=== PATIENT | female | born 1990 | race Caucasian/White ===

== ENCOUNTER 2020-08-06 10:54 | Emergency (ER) | payer OTHER, SELFPAY ==
--- NOTE | ~2020-08-06 | US_ITS ---
EXAMINATION: US pelvic complete w TV EXAM DATE: 08/06/2020 12:29 INDICATION: Left pelvic pain. TECHNIQUE: Pelvic transabdominal and transvaginal sonogram was performed. There are multiple graysca le and Doppler images available for interpretation. Comparison is made to prior examination from 11/30. FINDINGS: Uterus measures 7.7 x 3.7 x 5.3 cm, with IUD centrally located inside the endometrial cavi ty. Endometrial stripe measures 2 mm, within normal limits. There is no free pelvic fluid. Right adnexa: The right ovary is normal in size and morphology. Left adnexa: The left ovary is normal in size and morphology. IMPRESSION: 1. Unremarkable pelvic ultrasound exam. Reviewed, dictated and finalized at location A.
--- NOTE | ~2020-08-06 | CT_ITS ---
EXAMINATION: CT abdomen pelvis w con EXAM DATE: 08/06/2020 13:25 INDICATION: Left lower abdominal pain, symptoms one month. TECHNIQUE: Spiral CT of the abdomen and pelvis was performed following intravenous injection of 100 m L Omnipaque 350. Axial, coronal and sagittal images were reviewed. The dose-length product (DLP) fo r this examination was 182.97 mGy-cm. The exposure was tailored according to patient size (auto mA e xposure control), and iterative reconstruction (ASIR) was used as additional dose reduction technique . There is no prior study for comparison. FINDINGS: The liver, spleen, adrenal glands and pancreas are unremarkable. Gallbladder is unremarkab le. No biliary obstruction. Portal and splenic veins are patent. Kidneys enhance symmetrically. T here is no hydronephrosis. There is IUD which appears to be centrally located within the endometriu m, expected position. There is a deflated appearing, recently ruptured right ovarian follicle. The b ladder is unremarkable. There is no retroperitoneal or pelvic lymphadenopathy. The appendix is normal. The stomach and small bowel are unremarkable. There is expected amount of c olonic stool. No free intraperitoneal gas. The heart is normal in size. There are no pericardial or pleural effusions. The lung bases are unremarkable. The bones are unremarkable. IMPRESSION: 1. No acute intra-abdominal findings. 2. Likely recently ruptured right ovarian physiologic follicle. Reviewed, dictated and finalized at location A.
[2020-08-06 11:01] VITALS: BP 132/78; PULSE 79; RESP 14; TEMP 36.5; O2SAT 100
[2020-08-06 11:24] LABS: Basophils Percent Auto 0.3 % (0.2-1.2); Eosinophils Absolute Auto 0.1 K/mm3 (0-0.3); Eosinophils Percent Auto 1.3 % (0-4.4); Hematocrit 42.6 % (37.0-47.0); Hemoglobin 14.2 g/dL (12.0-15.0); Immature Granulocyte Absolute 0.02 K/mm3 (0.00-0.031); Immature Granulocyte Percent A 0.3 % (0-0.5); Lymphocytes Percent Auto 27.2 % (18.3-44.2); Mean Corpuscular HGB Conc 33.3 g/dl (32-36); Mean Corpuscular Hemoglobin 31.2 pg (26-34); Mean Corpuscular Volume 93.6 fl (80-100); Mean Platelet Volume 10.2 fl (7.4-10.4); Monocytes Absolute Auto 0.6 K/mm3 (0.1-0.6); Monocytes Percent Auto 7.4 % (2.6-8.5); Neutrophils Absolute Auto 4.9 K/mm3 (1.3-6.7); Neutrophils Percent Auto 63.5 % (45.5-73.1); Platelet Count Result 232 k/mm3 (150-375); Red Blood Count 4.55 M/mm3 (4.2-5.4); Red Cell Distribution Width 12.7 % (11.5-14.5); White Blood Count 7.7 K/mm3 (4.5-10.0)
[2020-08-06 11:31] LABS: Add Urine Microscopic? YES; Appearance Urine Clear (Clear); Bacteria Urine Trace /hpf; Bilirubin Urine Negative (Negative); Blood Urine Negative (Negative); Color Urine Yellow (Yellow); Glucose Urine UA Negative (Negative); Ketones Urine Negative (Negative); Leukocyte Esterase Ur Trace LEU/UL (Negative); Mucus Urine Few /lpf; Nitrate Urine Negative (Negative); Protein Urine Negative (Negative); Squamous Epithelial Cell Urine Many /hpf (Few); Urobilinogen Urine Negative mg/dL (<2.0); WBC Urine 0-3 /hpf
--- NOTE | 2020-08-06 11:37 | ED.ABDPAIN ---
HPI - Abdominal Pain General Chief Complaint: Abdominal Pain Stated Complaint: ABD PAIN Time Seen by Provider: 08/06/20 10:55 Source: patient Mode of arrival: ambulatory Limitations: no limitations History of Present Illness HPI narrative: This is a 30-year-old female that presents the emergency department for left-sided pelvic/abdominal pain x1 month. Reports she has intermittent sharp pains in the left side of her pelvis. 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 Reports improvement in her discharge after this. Denies fever, nausea, vomiting, dysuria, or hematuria. Related Data Allergies Allergy/AdvReac Type Severity Reaction Status Date / Time amoxicillin Allergy Unknown HIVES Verified 10/14/19 14:56 ampicillin Allergy Unknown HIVES Verified 10/14/19 14:56 Review of Systems Review of Systems: Narrative: CONSTITUTIONAL: Denies fever GASTROINTESTINAL: Reports abdominal/pelvic pain. Denies nausea, vomiting, or diarrhea. GENITOURINARY: Denies dysuria or hematuria. All systems reviewed & are unremarkable except as noted in HPI and below PMFSH Social History Social History (Updated 08/06/20 @ 11:41 by Nina Bailey PA-C) Smoking status: Current every day smoker Alcohol intake: current Substance use: current Substance use type: marijuana Gender identity (if verbalized by the patient): Female Exam Narrative: Exam Narrative: GENERAL: Well-appearing, well-nourished, and in no acute distress. HEAD: Normocephalic, atraumatic. EYES: EOMI. CHEST: Clear to auscultation. No respiratory distress. No wheezes rales or rhonchi HEART: Regular rate and rhythm. No murmur heard. Normal peripheral pulses. ABDOMEN: Soft, nondistended, normal active bowel sounds. Mild tenderness to palpation of the left lower abdomen/pelvis, without guarding EXTREMITIES: Normal range of motion. No edema. SKIN: Warm, dry, no rash. NEURO: No focal deficits. Alert and oriented x3. PSYCH: Normal mood and affect PELVIC: Moderate amount of white cervical discharge. Mild redness of the cervical os. No CMT Course Consultations Consultation #1: Spoke with Dr. Mays about patient and work-up. She does have an appointment in a week. She is to take [id number] pain medication as needed and follow-up in clinic. She may call to try to get an earlier appointment if needed Date: 08/06/20 Time: 13:50 Vital Signs Vital signs: Vital Signs Temperature 97.7 F 08/06/20 11:01 Pulse Rate 79 08/06/20 11:01 Respiratory Rate 14 08/06/20 11:01 Blood Pressure 132/78 08/06/20 11:01 Pulse Oximetry 100 08/06/20 11:01 Temperature 97.7 F 08/06/20 11:01 Pulse Rate 79 08/06/20 11:01 Respiratory Rate 14 08/06/20 11:01 Blood Pressure 132/78 08/06/20 11:01 Pulse Oximetry 100 08/06/20 11:01 MDM - Abdominal Pain MDM Narrative Medical decision making narrative: Patient presents to the emergency department for left-sided pelvic pain x1 month. She is afebrile and nontoxic-appearing. CBC is without leukocytosis. Metabolic panel and lipase without concerning findings. UA is without evidence of infection. Trichomonas was negative. Chlamydia, gonorrhea, and genital culture sent. Patient does not report any concern for STDs and does not want to be presumptively treated. Bedside test is negative. Pelvic ultrasound is without acute findings. CT scan of the abdomen and pelvis is also without acute findings. Patient and family were updated. Spoke with Dr. Mays about patient and work-up. She does have an appointment in a week. She is to take [id number] pain medication as needed and follow-up in clinic. Patient is stable and felt appropriate for further outpatient evaluation. She was given warnings to return to the ER Lab Data Attestation: I reviewed the patient's lab results. Result diagrams: 08/06/20 11:14 08/06/20 11:14 Labs: Lab Results
[2020-08-06 11:38] LABS: Alanine Aminotransferase 17 U/L (4-35); Albumin Level 4.7 g/dL (3.5-5.1); Alkaline Phosphatase 27 U/L (38-126); Anion Gap 8 mmol/L (8-16); Aspartate Amino Transferase 23 U/L (14-36); Bilirubin,Total 0.6 mg/dL (0.2-1.3); Blood Urea Nitrogen 19 mg/dL (7-17); Calcium 9.5 mg/dL (8.4-10.2); Carbon Dioxide 26 mmol/L (22-30); Chloride 106 mmol/L (98-107); Estimated CRCL calculation 97 ml/min; Estimated Glomerular Filt Rate > 60; Glucose 89 mg/dL (65-105); Lipase 38 U/L (23-300); Potassium 4.4 mmol/L (3.4-5.0); Sodium 140 mmol/L (137-145)
--- NOTE | 2020-08-06 11:53 | PC.NURSE ---
Patient in ultrasound at this time.
[2020-08-06 14:05] VITALS: BP 103/63; PULSE 52; RESP 16; O2SAT 99
== END 2020-08-06 14:05 | disposition home or self-care (01) ==
PROVIDERS: Physician Assistant; Emergency Provider Emergency Medicine
DX: R10.2 Pelvic and perineal pain (principal); F17.200 Nicotine dependence, unspecified, uncomplicated
CPT/HCPCS: 36415; 74177; 76830; 76856; 80053; 81001; 81025; 83690; 85025; 87070; 87491; 87591; 87808; 96365; 99284; J0131; Q9967

== ENCOUNTER 2021-07-01 06:02 | Inpatient (IN) | payer OTHER, SELFPAY ==
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
[2021-07-01] VITALS (128 sets, daily range): BP systolic 91–131; BP diastolic 48–92; PULSE 62–114; RESP 15–18; TEMP 36.7–36.9; O2SAT 82–100; BMI 26.6
--- OUTSIDE RECORDS SUMMARY | 2021-07-01 06:06 | XMS_ITS | Encounter Summary ---
:1990 Author Reason for Visit return OB visit Assessment and Plan 1. Routine care Discussion Note: None recorded.Patient educational handouts: No information available. Plan of Care Reminders Provider Appointments None ? ? recorded. Lab None ? ? recorded. Referral None ? ? recorded. Procedures None ? ? recorded. Surgeries None ? ? recorded. Imaging None ? ? recorded. Medications Name Start Date ? ? ferrous sulfate 325 mg (65 mg iron) tablet ? Take 2 tablets every day by oral route for 30 days. valacyclovir 500 mg tablet ? TAKE 1 TABLET BY MOUTH TWICE DAILY UNTIL DELIVERY Notes: PNV/ stool softener Medications Administered None recorded. Vitals Height Weight Blood Pressure 5 ft 6 in 163 lbs 120/64 mm[Hg] Results Lab Results None recorded. Allergies Code Code System Name Reaction Severity Onset 723 RxNorm Amoxicillin Hives Moderate ? Apalcillin Hives Moderate to ? Severe Notes: cillin family Problems Name Status Onset Date Source ? Active
--- OUTSIDE RECORDS SUMMARY | 2021-07-01 06:06 | XMS_ITS | Encounter Summary ---
[...] Weight Blood Pressure 5 ft 6 in 164 lbs 126/74 mm[Hg] Results Lab Results None recorded. Allergies Code Code System Name Reaction Severity Onset 723 RxNorm Amoxicillin Hives Moderate ? Apalcillin Hives Moderate to ? Severe Notes: cillin family Problems Name Status Onset Date Source ? Active
--- OUTSIDE RECORDS SUMMARY | 2021-07-01 06:06 | XMS_ITS | Encounter Summary ---
:1990 Author Reason for Visit OB Ultrasound Assessment and Plan None recorded.Discussion Note: None recorded.Patient educational handouts: No information [...] stool softener Medications Administered None recorded. Vitals None recorded. Results Lab Results None recorded. Allergies Code Code System Name Reaction Severity Onset 723 RxNorm Amoxicillin Hives Moderate ? Apalcillin Hives Moderate to ? Severe Notes: carla family Problems Name Status Onset Date Source ? Active 12/15/2020 History Procedures Date Name Performed by ?
--- OUTSIDE RECORDS SUMMARY | 2021-07-01 06:07 | XMS_ITS ---
:1990 Author Care Team Providers Name Role Phone Kristi Sal Primary Care Provider Unavailable Allergies Code Code System Name Reaction Severity Status Onset 723 RxNorm Amoxicillin Hives Moderate Active ? Apalcillin Hives Moderate to Active ? Severe Medications Name Status Start Date Stop Date ? ? metoclopramide 10 mg tablet Active ? Not available Take 1 tablet every 6-8 hours by oral route. metronidazole 500 mg tablet Completed ? 05/2020 TAKE 1 TABLET BY MOUTH TWICE DAILY FOR 7 DAYS Mirena 20 mcg/24 hours (6 yrs) 52 mg intrauterine device Complet ed ? 08/12/2020 Take 1 device by intrauterine route. pyridoxine (vitamin B6) 25 mg tablet Active ? Not available Take 1 tablet 4 times a day by oral route. Unisom (doxylamine) 25 mg tablet Active ? Not available Take 12.5 mg 3 times a day by oral route. valacyclovir 500 mg tablet Active ? Not a vailable TAKE 1 TABLET BY MOUTH TWICE DAILY FOR 3 DAYS Notes: PNV Problems Name Status Onset Date Source ? Active 12/15/2020 ? Procedures Date Name Performed by ? 08/12/2020 [employer] Procedure Information not avai lable Notes: mirena iud removal 07/27/2018 [employer] Procedure Information not avai lable Notes: mirena iud insertion 12/03/2020 US, Obstetric, 1St Trimester [facility] ([facility] Scheduling) [address] [facility]
--- OUTSIDE RECORDS SUMMARY | 2021-07-01 06:07 | XMS_ITS | Encounter Summary ---
[...] Weight Blood Pressure 5 ft 6 in 154 lbs 118/66 mm[Hg] Results Lab Results None recorded. Allergies Code Code System Name Reaction Severity Onset 723 RxNorm Amoxicillin Hives Moderate ? Apalcillin Hives Moderate to ? Severe Notes: cillin family Problems Name Status Onset Date Source ? Active
--- OUTSIDE RECORDS SUMMARY | 2021-07-01 06:07 | XMS_ITS | Encounter Summary ---
:1990 Author Reason for Visit return OB visit Assessment and Plan 1. Routine care 2. Anemia ? ferrous sulfate 325 mg (65 mg iron) tablet Discussion Note: None recorded.Patient educational handouts: No [...] Weight Blood Pressure 5 ft 6 in 151 lbs 112/62 mm[Hg] Results Lab Results None recorded. Allergies Code Code System Name Reaction Severity Onset 723 RxNorm Amoxicillin Hives Moderate ? Apalcillin Hives Moderate to ? Severe Notes: carla family Problems Name
--- OUTSIDE RECORDS SUMMARY | 2021-07-01 06:07 | XMS_ITS | Encounter Summary ---
:1990 Author Reason for Visit return OB visit Assessment and Plan 1. Routine care ? Diflucan 150 mg tablet Discussion Note: None recorded.Patient educational handouts: [...] Weight Blood Pressure 5 ft 6 in 156 lbs 120/68 mm[Hg] Results Lab Results None recorded. Allergies Code Code System Name Reaction Severity Onset 723 RxNorm Amoxicillin Hives Moderate ? Apalcillin Hives Moderate to ? Severe Notes: rachellin family Problems Name Status Onset Date Source ?
--- OUTSIDE RECORDS SUMMARY | 2021-07-01 06:07 | XMS_ITS | Encounter Summary ---
[...] Weight Blood Pressure 5 ft 6 in 158 lbs 118/78 mm[Hg] Results Lab Results None recorded. Allergies Code Code System Name Reaction Severity Onset 723 RxNorm Amoxicillin Hives Moderate ? Apalcillin Hives Moderate to ? Severe Notes: cillin family Problems Name Status Onset Date Source ? Active
--- OUTSIDE RECORDS SUMMARY | 2021-07-01 06:07 | XMS_ITS | Encounter Summary ---
:1990 Author Reason for Visit return OB visit Assessment and Plan 1. Routine care ? streptococcus group B, cul ture, unspecified specimen Discussion Note: None recorded.Patient educational handouts: No information available. Plan of Care Reminders Provider Appointments None recorded. ? ? Lab Streptococcus Gat [facility] Group B, Culture, 06/01/2021 Hospital (Lab) Unspecified Specimen Referral None recorded. ? ? Procedures None recorded. ? ? Surgeries None recorded. ? ? Imaging None recorded. ? ? Medications Name Start Date ? ? ferrous sulfate 325 mg (65 mg iron) tablet ? Take 2 tablets every day by oral route for 30 days. valacyclovir 500 mg tablet ? TAKE 1 TABLET BY MOUTH TWICE DAILY UNTIL DELIVERY Notes: PNV/ stool softener Medications Administered None recorded. Vitals Weight Blood Pressure 157 lbs 112/68 mm[Hg] Results Lab Results Date Name Specimen Result Interpretation Description Value Range Status Address ? 06/01/2021 Streptococcus ABNORMAL Strep Gp B positive nega tive Final [facility]: Group B, DARLENE+rflx [id number] Culture, [place] Unspecified
--- NOTE | 2021-07-01 06:29 | LDADM ---
This patient, Amira Camara, was admitted to Labor/Delivery/Recovery 106 on 07/01/21 at 06:02. Plans for labor, pain management and were discussed with patient. Patient/family oriented to hospital policies and general routines including ID bracelet, bed and alarms, visiting hours, pain management, procedures, bathroom and other care routines, personal items, smoking policy, room service/diet and guest tray routines, infant security routines, and visiting hours. Patient/Family are encouraged to report perceived risks to care and to ask questions if they do not understand what they are told or what they should do. See OBIX for further documentation.
[2021-07-01 06:52] LABS: Basophils Percent Auto 0.3 % (0.2-1.2); Eosinophils Absolute Auto 0.1 K/mm3 (0-0.3); Eosinophils Percent Auto 0.9 % (0-4.4); Hematocrit 33.8 % (37.0-47.0); Hemoglobin 11.2 g/dL (12.0-15.0); Immature Granulocyte Absolute 0.12 K/mm3 (0.00-0.031); Immature Granulocyte Percent A 0.8 % (0-0.5); Lymphocytes Absolute Auto 2.48 K/mm3 (0.9-3.2); Lymphocytes Percent Auto 16.5 % (18.3-44.2); Mean Corpuscular HGB Conc 33.1 g/dl (32-36); Mean Corpuscular Hemoglobin 32.3 pg (26-34); Mean Corpuscular Volume 97.4 fl (80-100); Mean Platelet Volume 10.2 fl (7.4-10.4); Monocytes Absolute Auto 1.1 K/mm3 (0.1-0.6); Monocytes Percent Auto 7.1 % (2.6-8.5); Neutrophils Absolute Auto 11.2 K/mm3 (1.3-6.7); Neutrophils Percent Auto 74.4 % (45.5-73.1); Platelet Count Result 270 k/mm3 (150-375); Red Blood Count 3.47 M/mm3 (4.2-5.4); Red Cell Distribution Width 15.3 % (11.5-14.5); White Blood Count 15.1 K/mm3 (4.5-10.0)
[2021-07-01] MEDS: OXYTOCIN 30 UNITS/NS 500 ML 30 UNITS/500 ML BAG IV CONT (07:01)
[2021-07-01] MEDS: AMPICILLIN 2 GM/NS 100 ML 2 GM/100 ML BAG IVPB (07:01)
[2021-07-01] MEDS: LACTATED RINGERS 1,000 ML 125 ML IV CONT ×2 (07:01→09:39)
[2021-07-01] MEDS: ONDANSETRON INJ 4 MG/2 ML VIAL IV PUSH (08:56)
[2021-07-01 09:19] LABS: Amphetamine Screen Urine Negative (Negative); Barbiturate Screen Urine Negative (Negative); Benzodiazepines Screen Urine Negative (Negative); Cannabinoid Screen Urine Negative (Negative); Cocaine Screen Urine Negative (Negative); Methadone Screen Urine Negative (Negative); Opiate Screen Urine Negative (Negative); Phencyclidine Screen Urine Negative (Negative)
[2021-07-01 09:20] LABS: Rapid Plasma Reagin Non-Reactive (NonReactive)
--- NOTE | 2021-07-01 10:05 | WPDANESEPP ---
Anes - Eval Pre Procedure Procedure: Labor Epidural Date/Time: 07/01/21 10:05 Surgeon: Mahnaz Preop Diagnosis: labor pain Pre Op Diagnosis: IOL Patient Data Age: 31 Gender: F Height: 1.68 m Weight: 75 kg Last Vital Signs Temp 36.9 C 07/01/21 09:00 Pulse 91 07/01/21 10:05 BP 110/66 07/01/21 10:05 Pulse Ox 100 07/01/21 10:04 Allergies Allergy/AdvReac Type Severity Reaction Status Date / Time amoxicillin Allergy Unknown HIVES Verified 06/21/21 14:47 ampicillin Allergy Unknown HIVES Verified 06/21/21 14:47 Home Medications Medication Instructions Recorded Confirmed Type ferrous sulfate 325 mg PO BID 06/21/21 06/21/21 History prenat.vits,christen,hwr-qimx-pwiuq 1 tablet PO DAILY 06/21/21 06/21/21 History [ #2] valacyclovir 500 mg PO Q12H 06/21/21 06/21/21 History Laboratory Tests 07/01/21 07/01/21 07/01/21 06:20 06:20 06:20 WBC 15.1 K/mm3 H K/mm3 (4.5-10.0) RBC 3.47 M/mm3 L M/mm3 (4.2-5.4) Hgb 11.2 g/dL L D g/dL (12.0-15.0) Hct 33.8 % L % (37.0-47.0) MCV 97.4 fl fl (80-100) MCH 32.3 pg pg (26-34) MCHC 33.1 g/dl g/dl (32-36) RDW 15.3 % H % (11.5-14.5) Plt Count 270 k/mm3 k/mm3 (150-375) MPV 10.2 fl fl (7.4-10.4) Immature Gran % (Auto) 0.8 % H % (0-0.5) Neut % (Auto) 74.4 % H % (45.5-73.1) Lymph % (Auto) 16.5 % L % (18.3-44.2) [place] % (Auto) 7.1 % % (2.6-8.5) Eos % (Auto) 0.9 % % (0-4.4) Baso % (Auto) 0.3 % % (0.2-1.2) Lymph # (Auto) 2.48 K/mm3 K/mm3 (0.9-3.2) [place] # (Auto) 1.1 K/mm3 H K/mm3 (0.1-0.6) Eos # (Auto) 0.1 K/mm3 K/mm3 (0-0.3) Baso # (Auto) 0.0 K/mm3 K/mm3 (0.0-0.1) Abs Immat Gran (auto) 0.12 K/mm3 H K/mm3 (0.00-0.031) Absolute Neuts (auto) 11.2 K/mm3 H K/mm3 (1.3-6.7) Absolute Nucleated RBC 0.0 K/mm3 K/mm3 (0.0-0.012) Nucleated RBC % 0.0 % % (0.0-0.2) Urine Opiates Screen Urine Methadone Screen Ur Barbiturates Screen Ur Phencyclidine Scrn Ur Amphetamine Screen U Benzodiazepines Scrn Urine Cocaine Screen U Cannabinoids Screen RPR Non-reactive (NonReactive) Blood Type A Positive Antibody Screen Negative 07/01/21 08:14 WBC RBC Hgb Hct MCV MCH MCHC RDW Plt Count MPV Immature Gran % (Auto) Neut % (Auto) Lymph % (Auto) [place] % (Auto) Eos % (Auto) Baso % (Auto) Lymph # (Auto) [place] # (Auto) Eos # (Auto) Baso # (Auto) Abs Immat Gran (auto) Absolute Neuts (auto) Absolute Nucleated RBC Nucleated RBC % Urine Opiates Screen Negative (Negative) Urine Methadone Screen Negative (Negative) Ur Barbiturates Screen Negative (Negative) Ur Phencyclidine Scrn Negative (Negative) Ur Amphetamine Screen Negative (Negative) U Benzodiazepines Scrn Negative (Negative) Urine Cocaine Screen Negative (Negative) U Cannabinoids Screen Negative (Negative) RPR Blood Type Antibody Screen : gestational age (ADELIA 07/05/21, EDC 07/05/21) Patient hx anesthesia problems: none Family hx anesthesia problems: none PMFSH Family History Family History Other No pertinent family history Social History Social History Smoking status: Current every day smoker Alcohol intake: current Substance use: former Substance use type: marijuana Gender identity (if verbalized by the patient): Female Spiritual care concerns: No Exam Day of Proced
[2021-07-01] MEDS: AMPICILLIN 1 GM/NS 50 ML 1 GM/50 ML BAG IVPB (11:00)
--- NOTE | 2021-07-01 13:18 | WPDHPUPDATE1 ---
History and Physical Update Update Date/Time: 07/01/21 13:18 History and Physical has been reviewed, including an updated exam of the patient. There are NO changes in the patient's condition. Risks, benefits, and alternatives have been discussed and questions answered. Patient agrees to proceed with procedure.
--- NOTE | 2021-07-01 13:19 | P.PCNOB_ITS ---
OB - Delivery Note Procedure Route of delivery: Episiotomy description: None Laceration Description: None Specimen: Yes Quantitative Blood Loss (ml): 200 Anesthesia type: Epidural Disposition: floor Narrative: Of draped in usual manner for this procedure. Vertex was delivered without difficulty followed by the rest baby without dystocia. Cord was clamped and and placenta delivered spontaneously. Cervix vagina vulva were inspected with no lacerations or tears. At this point seizure was considered terminated. [place] Baby Weeks of gestation at delivery: 39 gender: Male Weight (pounds): 7 Weight (ounces): 8 score one minute: 8 score five minutes: 9
--- NOTE | 2021-07-01 13:19 | WPDOBADMIT ---
Obstetrics - Admit Note Admission Note: record reviewed. No pertinent additions to the history and/or any subsequent changes in the physical findings that are not consistent with the expected course of the were found. Additions to the history and/or subsequent changes in the physical findings follow. None.
[2021-07-01] MEDS: OXYTOCIN 30 UNITS/NS 500 ML 30 UNITS/500 ML BAG 125 UNITS IV CONT ×3 (13:35→18:10)
[2021-07-01] MEDS: miSOPROStol 200 MCG TABLET 800 MCG RECTAL (14:38)
[2021-07-01] MEDS: WITCH HAZEL 40 PADS 1 PAD TOPICAL (15:09)
[2021-07-01] MEDS: BENZOCAINE 20% AER SPR (*SP) 56 GM CAN 1 SPRAY TOPICAL (15:09)
[2021-07-01] MEDS: IBUPROFEN 600 MG TABLET PO ×2 (15:10→23:30)
[2021-07-01] MEDS: LACTATED RINGERS 1,000 ML 125 ML (15:54)
--- NOTE | 2021-07-01 15:58 | PM.OBPNVD ---
OB - PN: Subj Subjective Date/time seen: 07/01/21 Called to see patient due to bleeding. After delivery the uterus was well contracted but did become a tonic the responded to massage Pitocin and Cytotec. She has continued use and passed small clots and has had some larger clots recently. Exam again reveals no obvious retained products. Examination of the placenta again reveals no obvious missing pieces. In light of continued bleeding and no obvious reason will be proceeding with taking the patient to the operating room so a more thorough examination be undertaken also curettings as needed. This has been discussed the patient and her significant other who agree to proceed. OB - PN: Obj Data Labs CBC & Chem 7: 07/01/21 06:20 Labs: Laboratory Results - last 24 hr 07/01/21 07/01/21 07/01/21 06:20 06:20 06:20 WBC 15.1 H RBC 3.47 L Hgb 11.2 L D Hct 33.8 L MCV 97.4 MCH 32.3 MCHC 33.1 RDW 15.3 H Plt Count 270 MPV 10.2 Immature Gran % (Auto) 0.8 H Neut % (Auto) 74.4 H Lymph % (Auto) 16.5 L [place] % (Auto) 7.1 Eos % (Auto) 0.9 Baso % (Auto) 0.3 Lymph # (Auto) 2.48 [place] # (Auto) 1.1 H Eos # (Auto) 0.1 Baso # (Auto) 0.0 Abs Immat Gran (auto) 0.12 H Absolute Neuts (auto) 11.2 H Absolute Nucleated RBC 0.0 Nucleated RBC % 0.0 Urine Opiates Screen Urine Methadone Screen Ur Barbiturates Screen Ur Phencyclidine Scrn Ur Amphetamine Screen U Benzodiazepines Scrn Urine Cocaine Screen U Cannabinoids Screen RPR Non-reactive Blood Type A Positive Antibody Screen Negative 07/01/21 08:14 WBC RBC Hgb Hct MCV MCH MCHC RDW Plt Count MPV Immature Gran % (Auto) Neut % (Auto) Lymph % (Auto) [place] % (Auto) Eos % (Auto) Baso % (Auto) Lymph # (Auto) [place] # (Auto) Eos # (Auto) Baso # (Auto) Abs Immat Gran (auto) Absolute Neuts (auto) Absolute Nucleated RBC Nucleated RBC % Urine Opiates Screen Negative Urine Methadone Screen Negative Ur Barbiturates Screen Negative Ur Phencyclidine Scrn Negative Ur Amphetamine Screen Negative U Benzodiazepines Scrn Negative Urine Cocaine Screen Negative U Cannabinoids Screen Negative RPR Blood Type Antibody Screen OB - PN A/P Assessment and Plan (1) hemorrhage: Code(s): O72.1 - Other immediate hemorrhage Status: Acute Assessment and Plan: 1. 2Nd IV line will be placed 2. Labs are obtained 3. Proceed with examination under anesthesia and proceed as indicated at that point. Time Spent With Patient Time: Total time spent is greater than 50% in coordination of care (as documented) at patient's floor/unit and/or counseling patient:
[2021-07-01] MEDS: METHYLERGONOVINE MALEATE 0.2 MG/ML VIAL (16:02)
[2021-07-01 16:06] LABS: Hematocrit 30.1 % (37.0-47.0); Hemoglobin 9.7 g/dL (12.0-15.0); Mean Corpuscular HGB Conc 32.2 g/dl (32-36); Mean Corpuscular Hemoglobin 31.4 pg (26-34); Mean Corpuscular Volume 97.4 fl (80-100); Mean Platelet Volume 10.1 fl (7.4-10.4); Platelet Count Result 240 k/mm3 (150-375); Red Blood Count 3.09 M/mm3 (4.2-5.4); Red Cell Distribution Width 15.2 % (11.5-14.5); White Blood Count 22.5 K/mm3 (4.5-10.0)
[2021-07-01] MEDS: ceFAZolin 2 GM/D5W 50 ML 2 GM/50 ML BAG 100 GM (16:21)
--- NOTE | 2021-07-01 16:29 | WPDANESEFPP ---
Anes - Eval Final PreProcedure Day of Procedure 07/01/21 16:29 Patient weight: overweight Heart: regular rate and rhythm Lungs: clear to auscultation and normal air movement Airway: Mallampati scale class II Neurological: alert and oriented Last oral intake: >/= 8 hours ASA classification: II Emergent: yes Anesthetic plan: proceed Anesthesia type and monitoring: regional spinal Informed Consent: The patient's anesthetic plan and its attendant risks and benefits were discussed with the patient/family/POA. Questions were solicited and answers provided to the satisfaction of the patient/family/POA.
[2021-07-01] MEDS: LACTATED RINGERS 1,000 ML 30 ML IV CONT (16:30)
[2021-07-01 17:27] LABS: Hematocrit 30.1 % (37.0-47.0); Hemoglobin 9.8 g/dL (12.0-15.0); Mean Corpuscular HGB Conc 32.6 g/dl (32-36); Mean Corpuscular Hemoglobin 31.9 pg (26-34); Mean Platelet Volume 10.2 fl (7.4-10.4); Platelet Count Result 239 k/mm3 (150-375); Red Blood Count 3.07 M/mm3 (4.2-5.4); Red Cell Distribution Width 15.4 % (11.5-14.5); White Blood Count 22.3 K/mm3 (4.5-10.0)
[2021-07-01 17:31] LABS: Anisocytosis 2+ (NORMAL); Lymphocytes Absolute Manual 1.33 K/mm3 (1.1-4.5); Monocytes Absolute Manual 1.11 K/mm3 (0.1-0.90); Monocytes Percent Manual 5 % (3-9); Neutrophils Percent Manual 89 % (46-73); Platelet Estimate Adequate (Adequate); Total Cells Counted 100
--- NOTE | 2021-07-01 17:51 | SUR.OPER ---
Bakri Balloon inserted by Dr. Joya. 200ml IVNS inserted in balloon.
--- NOTE | 2021-07-01 18:31 | PM.OP ---
Procedure Note - Brief Procedure Note - Brief Date of procedure: 07/01/21 Pre-op diagnosis: PP hemorrhage Post-op diagnosis: same Procedure performed: 1. exam under anesthesia 2. suction curettage 3. Bakri balloon placement (#2 and #3 under us guidance) Description of procedure: Once anesthesia via spinal was adequate examination under anesthesia was undertaken. Manual evaluation of the intrauterine cavity revealed no significant tissue and minimal bleeding. Ultrasound revealed possible retained tissue at the fundus of the uterus which was then removed using suction curettage. As the patient was still oozing a box Prieb balloon was placed again under visual guidance from ultrasound and filled with 200cc of normal saline. Packing was placed and at this point the procedure was considered terminated. She was then sent to the recovery room in stable condition. Findings operative course and possible postoperative complications including but not limited to infection bleeding to the point of transfusion and hysterectomy were discussed with the patient and her significant other and questions were answered. Anesthesia: spinal Surgeon: Sha Joya MD Estimated blood loss (mL): 350 Drains: Yes Packing: Yes Pathology: yes Complications: No immediate complications Condition: stable Disposition: PACU Findings: 1. minimal retained POC 2. atonic uterus
--- NOTE | 2021-07-01 18:55 | PC.NURSE ---
report received from gian silva rn
[2021-07-01] MEDS: METHYLERGONOVINE MALEATE 0.2 MG TABLET PO (22:28)
[2021-07-02 02:30] VITALS: RESP 18; TEMP 36.8
[2021-07-02 02:34] VITALS: PULSE 85; O2SAT 100
[2021-07-02 02:35] VITALS: BP 111/66; PULSE 81
[2021-07-02 06:00] LABS: Hematocrit 23.4 % (37.0-47.0); Hemoglobin 7.6 g/dL (12.0-15.0); Mean Corpuscular HGB Conc 32.5 g/dl (32-36); Mean Corpuscular Hemoglobin 31.4 pg (26-34); Mean Corpuscular Volume 96.7 fl (80-100); Mean Platelet Volume 10.2 fl (7.4-10.4); Platelet Count Result 216 k/mm3 (150-375); Red Blood Count 2.42 M/mm3 (4.2-5.4); White Blood Count 19.1 K/mm3 (4.5-10.0)
--- NOTE | 2021-07-02 06:23 | PC.NURSE ---
report given to mateus brandt rn
[2021-07-02] MEDS: METHYLERGONOVINE MALEATE 0.2 MG TABLET PO ×3 (06:35→23:16)
--- NOTE | 2021-07-02 07:30 | PC.NURSE ---
Jasonri balloon removed with Dr. Joya at bedside. No bleeding noted at this time.
--- NOTE | 2021-07-02 07:38 | PM.OBPNVD ---
OB - PN: Subj Subjective Date/time seen: 07/02/21 07:38 Hungry/no sig pain/minimal drainage. OB - PN: Obj Data Labs CBC & Chem 7: 07/02/21 05:06 Labs: Laboratory Results - last 24 hr 07/01/21 07/01/21 07/01/21 06:20 06:20 08:14 WBC RBC Hgb Hct MCV MCH MCHC RDW Plt Count MPV Immature Gran % (Auto) Neut % (Auto) Lymph % (Auto) [place] % (Auto) Eos % (Auto) Baso % (Auto) Lymph # (Auto) [place] # (Auto) Eos # (Auto) Baso # (Auto) Abs Immat Gran (auto) Absolute Neuts (auto) Absolute Nucleated RBC Total Counted Neutrophils % (Manual) Lymphocytes % (Manual) Monocytes % (Manual) Nucleated RBC % Abs Lymphs (Manual) Abs Monocytes (Manual) Platelet Estimate Anisocytosis Urine Opiates Screen Negative Urine Methadone Screen Negative Ur Barbiturates Screen Negative Ur Phencyclidine Scrn Negative Ur Amphetamine Screen Negative U Benzodiazepines Scrn Negative Urine Cocaine Screen Negative U Cannabinoids Screen Negative RPR Non-reactive Blood Type A Positive Antibody Screen Negative 07/01/21 07/01/21 07/02/21 08:26 15:58 05:06 WBC 22.5 H 22.3 H 19.1 H RBC 3.09 L 3.07 L 2.42 L Hgb 9.7 L 9.8 L 7.6 L Hct 30.1 L 30.1 L 23.4 L MCV 97.4 98.0 96.7 MCH 31.4 31.9 31.4 MCHC 32.2 32.6 32.5 RDW 15.2 H 15.4 H 15.0 H Plt Count 240 239 216 MPV 10.1 10.2 10.2 Immature Gran % (Auto) Not Reportable Neut % (Auto) Not Reportable Lymph % (Auto) Not Reportable [place] % (Auto) Not Reportable Eos % (Auto) Not Reportable Baso % (Auto) Not Reportable Lymph # (Auto) Not Reportable [place] # (Auto) Not Reportable Eos # (Auto) Not Reportable Baso # (Auto) Not Reportable Abs Immat Gran (auto) Not Reportable Absolute Neuts (auto) Not Reportable Absolute Nucleated RBC Not Reportable Total Counted 100 Neutrophils % (Manual) 89 H Lymphocytes % (Manual) 6.0 L Monocytes % (Manual) 5 Nucleated RBC % Not Reportable Abs Lymphs (Manual) 1.33 Abs Monocytes (Manual) 1.11 H Platelet Estimate Adequate Anisocytosis 2+ Urine Opiates Screen Urine Methadone Screen Ur Barbiturates Screen Ur Phencyclidine Scrn Ur Amphetamine Screen U Benzodiazepines Scrn Urine Cocaine Screen U Cannabinoids Screen RPR Blood Type Antibody Screen OB - PN A/P Assessment and Plan (1) hemorrhage: Code(s): O72.1 - Other immediate hemorrhage Status: Acute Assessment and Plan: Will pull balloon this morning, continue methergine and Ancef one more dose. H/H in am. (2) care following vaginal delivery: Code(s): Z39.2 - Encounter for routine follow-up Status: Acute Time Spent With Patient Time: Total time spent is greater than 50% in coordination of care (as documented) at patient's floor/unit and/or counseling patient:
--- NOTE | 2021-07-02 08:55 | PC.NURSE ---
Vaginal packing removed. No bleeding noted at this time. Fundus firm.
[2021-07-02 09:00] VITALS: BP 101/61; PULSE 84; RESP 16; TEMP 37.1; O2SAT 99
--- NOTE | 2021-07-02 09:00 | OBPPTRN ---
Patient transferred to post room # 286 via wheelchair. Oriented to unit, room, information board, rooming in, admission packet and security measures. Patient verbalizes understanding.
[2021-07-02] MEDS: SODIUM CHLORIDE 0.9% IV 100 ML 25 ML (10:30)
[2021-07-02] MEDS: DOCUSATE SODIUM 100 MG CAPSULE PO ×2 (10:34→18:42)
[2021-07-02] MEDS: POLYSACCHARIDE IRON COMPLEX 150 MG CAPSULE PO ×2 (10:34→18:43)
[2021-07-02] MEDS: IBUPROFEN 600 MG TABLET PO ×2 (10:35→23:16)
[2021-07-02] MEDS: MULTIVIT/MIN/PREN/FOL AC/IRON TABLET 1 TAB PO (10:35)
--- NOTE | 2021-07-02 11:56 | WPDANLDPN2 ---
Anes-Prog Note L&D Date/Time: 07/02/21 11:56 Comfortable throughout: labor and delivery Neuraxial method: epidural Epidural/Spinal procedure site: clean & non-tender Neuro status: Neuro function grossly intact. Cardiovascular status: normal Respiratory status: normal Airway patency: baseline Mental status: baseline Post-Op hydration status: normal Vital Signs: Last Vital Signs Temp 37.1 C 07/02/21 09:00 Pulse 84 07/02/21 09:00 Resp 16 07/02/21 09:00 BP 101/61 07/02/21 09:00 Pulse Ox 99 07/02/21 09:00 Pain score (VAS): 0 I/O: Intake & Output 07/01/21 07/02/21 07/02/21 23:59 07:59 15:59 Intake Total 500 50 Output Total 2781 0815 Balance -6633 -2473 Post-procedural complaints: none Patient feedback: Patient satisfied with anesthetic care.
--- NOTE | 2021-07-02 12:05 | PC.NURSE ---
Consulted with patient, mother reports this is 3rd child to breastfeed. Mother states has been waking and eagerly latching. Reviewed feeding cues, frequencies, duration of feedings, feeding elimination flow sheet, and signs of adequate intake. Demonstrated stimulation techniques to wake for feeding. Mother puts infant to breast in cradle positioning with shallow latch, is on and off during first 2-3 minutes of feeding. Reviewed positioning/alignment, holding breast and asymmetrical latch on. Suggested mother switch to cross cradle, holding breast in 'u hold and guided asymmetrical latch. was able to latch correctly. Infant nursed eagerly, with steady draws and occasional swallowing pausing noted. Reviewed signs of a correct latch, effective nursing and suck swallow ratio. Suggested mother stimulate infant while feeding to keep infant awake and nursing effectively to assist with increased intake, stimulation of supply and assist with maintaining latch. Infant was able to maintain latch without discomfort to mother. Nipple care reviewed. Mother switched to cradle hold and used the scissor hold to assist with maintaining latch. Instructed mother to call out for RN assistance if she is unable to latch infant for feeding or she has discomfort with nursing. Instructed feeding should be initiated three hours from start of last feeding or if feeding cues are noted before. Mother voiced understanding of information shared.
[2021-07-02 12:19] VITALS: BP 99/55; PULSE 81; RESP 18; TEMP 36.6; O2SAT 97
[2021-07-02] MEDS: ACETAMINOPHEN 325 MG TABLET 650 MG PO (18:43)
[2021-07-02 20:00] VITALS: BP 99/45; PULSE 76; RESP 16; TEMP 36.9; O2SAT 100
[2021-07-02] MEDS: HYDROcodone/acetaminophen (*CRX) 5-325 MG TABLET 1 TAB PO (20:11)
[2021-07-03 06:15] LABS: Hematocrit 21.8 % (37.0-47.0)
[2021-07-03] MEDS: METHYLERGONOVINE MALEATE 0.2 MG TABLET PO (07:13)
[2021-07-03] MEDS: POLYSACCHARIDE IRON COMPLEX 150 MG CAPSULE PO (07:14)
[2021-07-03 07:15] VITALS: BP 96/46; PULSE 87; RESP 16; TEMP 36.4; O2SAT 99
[2021-07-03] MEDS: DOCUSATE SODIUM 100 MG CAPSULE PO (07:15)
[2021-07-03] MEDS: IBUPROFEN 600 MG TABLET PO (07:15)
[2021-07-03] MEDS: MULTIVIT/MIN/PREN/FOL AC/IRON TABLET 1 TAB PO (07:15)
--- NOTE | 2021-07-03 07:29 | PM.OBDSVD ---
DS: Admitting Diagnosis Admitting Diagnosis OB - DS: Summary OB Procedures : None OB Procedures Intrapartum: Spontaneous Vag Delivery OB Procedures: : Curettage Peripartum Data Procedures: Procedures Operation Date: 07/01/21 16:30 Actual Procedure Side Surgeon p Suction Dilitation and Curettage with insertion of Bakri Balloon Not Applicable Sha Joya MD Time Spent with Patient Time attestation: Total time spent providing and/or coordinating discharge services: DS: Data Data Completed and Pending Pending studies at discharge: Pending at discharge 07/01/21 17:57 Surgical [PTH] Routine Surgical [PTH] Routine Labs on day of discharge: Labs from last 24 hours 07/03/21 04:44 Hgb 7.0 L Hct 21.8 L Discharge Plan Discharge Discharging Clinician: Sha Joya Patient Disposition: Home, Self-Care Activity: as tolerated Diet: as tolerated Patient Instructions: Antibiotic Form Stand Alone Forms: General Discharge Information Follow-up/Referrals: Sha Joya MD [Physician] - 3 Weeks Discharge Medications: New ibuprofen 600 mg Tablet 600 mg PO Q6H PRN (Reason: Cramping) Qty: 30 RF: 0 Continued ferrous sulfate 325 mg (65 mg iron) Tablet 325 mg PO BID RF: 0 #2 Tablet 1 tablet PO DAILY RF: 0 Discontinued valacyclovir 500 mg Tablet 500 mg PO Q12H RF: 0 Date of admission: 07/01/21 06:02 Primary Care Provider: PHYSICIAN,SPECIMEN TECHNICIAN Admitting Provider: Sha Joya Attending physician on admission: Sha Joya Condition: Stable
[2021-07-03] MEDS: HYDROcodone/acetaminophen (*CRX) 5-325 MG TABLET 1 TAB PO (10:04)
--- NOTE | 2021-07-03 11:40 | PC.NURSE ---
Patient instructed on viewing the discharge video Mother & Baby Care, The First Two Weeks . Patient was given the opportunity and encouraged to ask questions. Patient verbalized understanding of information shared and has been given the mother/baby guide for home reference.
--- NOTE | 2021-07-03 11:46 | PM.EVENT ---
Event Note Event Note Event Note: Called to evaluate for pt complaints of PDPH. Pt had labor uneventful epidural and later had a SAB for a D&C. Pt experienced a PDPH on previous delivery that had required a blood patch. At the time of visit, pt was standing up in her room packing & preparing for discharge. Pt denied distress at that moment. She stated that the norco was giving her relief and she was feeling better at that moment. I informed her we would not be able to prescribe her norco to take home. She verbalized understanding. I provided her with the options of remaining inpatient longer, having an IV reinserted, and be given IV cosentropin in conjunction with bedrest, increased fluids, caffeine. In the event of failed conservative treatment a blood patch could be administered. Pt insists she wishes to go home and will continue with conservative treatments and home. Pt aware she could return should headache worsen or fail to resolve. Throughout visit pt continued to remain sitting upright without complaints.
== END 2021-07-03 12:20 | disposition home or self-care (01) | DRG 541 ==
LOC: ANHLDR 18:34 → ANHOB2 07-02 09:04
PROVIDERS: Admitting Provider Obstetrics & Gynecology; Visit Provider Obstetrics & Gynecology
PROC: 10E0XZZ Delivery of Products of Conception, External Approach (ICD-10-PCS; principal; 2021-07-01 16:30)
DX: O99.824 Streptococcus B carrier state complicating childbirth (principal); O77.0 Labor and delivery complicated by meconium in amniotic fluid; O67.8 Other intrapartum hemorrhage; O72.1 Other immediate postpartum hemorrhage; Z3A.39 39 weeks gestation of pregnancy; Z37.0 Single live birth
CPT/HCPCS: 36415; 80307; 85014; 85018; 85025; 85027; 86592; 86850; 86900; 86901; 88305; 88307; A9270; J0290; J0690; J1170; J2210; J2250; J2405; J2590; J2795; J3010; J7120